=== PATIENT | female | born 1975 | race Two or more races ===

== ENCOUNTER 2021-12-02 13:46 | Outpatient (CLI) | payer OTHER | END 2021-12-02 16:30 | disposition home or self-care (01) | LOC: PRENATAL 13:46 | PROVIDERS: ATTEND Obstetrics & Gynecology Maternal & Fetal Medicine | DX: O34.11 Maternal care for benign tumor of corpus uteri, first trimester (principal); O36.80X1 Pregnancy with inconclusive fetal viability, fetus 1; O09.511 Supervision of elderly primigravida, first trimester; O26.851 Spotting complicating pregnancy, first trimester; Z36.89 Encounter for other specified antenatal screening; Z3A.11 11 weeks gestation of pregnancy ==

== ENCOUNTER 2022-01-25 13:11 | Outpatient (CLI) | payer OTHER | END 2022-01-25 14:40 | disposition home or self-care (01) | LOC: PRENATAL 13:11 | PROVIDERS: ATTEND Obstetrics & Gynecology Maternal & Fetal Medicine | DX: O09.519 Supervision of elderly primigravida, unspecified trimester (principal); O36.80X0 Pregnancy with inconclusive fetal viability, not applicable or unspecified; O44.00 Complete placenta previa NOS or without hemorrhage, unspecified trimester; O34.10 Maternal care for benign tumor of corpus uteri, unspecified trimester ==

== ENCOUNTER 2022-04-27 13:14 | Outpatient (CLI) | payer OTHER | END 2022-04-27 14:15 | disposition home or self-care (01) | LOC: PRENATAL 13:14 | PROVIDERS: ATTEND Obstetrics & Gynecology Maternal & Fetal Medicine | DX: O26.849 Uterine size-date discrepancy, unspecified trimester (principal); O09.519 Supervision of elderly primigravida, unspecified trimester; O09.819 Supervision of pregnancy resulting from assisted reproductive technology, unspecified trimester; O44.00 Complete placenta previa NOS or without hemorrhage, unspecified trimester; Z3A.32 32 weeks gestation of pregnancy ==

== ENCOUNTER 2022-05-28 14:30 | Inpatient (IN) | payer OTHER ==
[~2022-05-28] VITALS: Ht 172.7 cm; Wt 82.6 kg
[2022-06-12] MEDS ORDERED: INTEGRA PLUS C1 EACH PO (11:56)
== END 2022-06-12 17:45 | disposition home or self-care (01) | DRG 807 ==
LOC: LDR 06-10 08:48 → OB/GYN 06-10 20:18 → LDR 06-18 14:30
PROVIDERS: ADMIT Obstetrics & Gynecology; ATTEND Obstetrics & Gynecology
PROC: 10E0XZZ Delivery of Products of Conception, External Approach (ICD-10-PCS; principal; 2022-06-10)
PROC: 0KQM0ZZ Repair Perineum Muscle, Open Approach (ICD-10-PCS; 2022-06-10)
PROC: 0UQG7ZZ Repair Vagina, Via Natural or Artificial Opening (ICD-10-PCS; 2022-06-10)
PROC: 4A1HXCZ Monitoring of Products of Conception, Cardiac Rate, External Approach (ICD-10-PCS; 2022-06-10)
DX: O70.1 Second degree perineal laceration during delivery (principal); Z37.0 Single live birth; Z3A.38 38 weeks gestation of pregnancy; Z20.822 Contact with and (suspected) exposure to COVID-19

== ENCOUNTER 2022-06-10 07:18 | Outpatient (CLI) | payer OTHER | END 2022-06-10 08:48 | disposition still patient (30) | LOC: NST 07:18 | PROVIDERS: ATTEND Student in an Organized Health Care Education/Training Program | DX: Z34.83 Encounter for supervision of other normal pregnancy, third trimester (principal) ==

== ENCOUNTER 2022-12-14 14:30 | Outpatient (CLI) | payer OTHER ==
[~2022-12-14 14:30] MED LIST: INTEGRA PLUS C1 EACH PO
== END 2022-12-14 14:45 | disposition home or self-care (01) ==
LOC: PPH VACUNA 14:30 → PPHC 14:30
PROVIDERS: ATTEND Emergency Medicine Pediatric Emergency Medicine
DX: Z23 Encounter for immunization (principal)